=== PATIENT | male | born 1985 | race Caucasian/White ===

== ENCOUNTER → 2016-10-06 | Outpatient (CLI) | payer OTHER ==
[~2016-10-06] MED LIST: CEPH500C PO; CPR500 PO; METR-163 PO; ONDA4TAB46 PO; OXYC-57 PO
[2016-10-06 13:04] LABS: BASO % 0.7 %; BASO ABS # 0.06 K/uL (0-0.2); COMPLETE YES; EOS % 5.2 %; HEMATOCRIT 44.5 % (42-52); IG% 0.1 %; LYMPH % 24.6 %; LYMPH ABS # 2.19 K/uL (1.2-3.4); MEAN CELL VOLUME 91.6 fL (80-100); MEAN CORPUSCULAR HEMOGLOBIN 30.9 pg (25-34); MEAN CORPUSCULAR HGB CONC 33.7 g/dl (32-36); MEAN PLATELET VOLUME 10.3 fL (7.4-10.4); NEUT % 59.4 %; PLATELET COUNT 274 K/uL (130-400); RED BLOOD COUNT 4.86 M/uL (4.7-6.1); WHITE BLOOD COUNT 8.89 K/uL (4.8-10.8)
[2016-10-06 13:34] LABS: ALT/SGPT 49 U/L (12-78); AST/SGOT 20 U/L (15-37); BLOOD UREA NITROGEN 17 mg/dl (7-18); BUN/CREATININE RATIO 15.4 (10-20); CALCIUM 9.3 mg/dl (8.5-10.1); CARBON DIOXIDE 28 mmol/L (21-32); CHLORIDE 108 mmol/L (98-107); GLUCOSE 83 mg/dl (70-99); POTASSIUM 4.5 mmol/L (3.5-5.1); SODIUM 143 mmol/L (136-145)
[2016-10-06 13:36] LABS: ALB/GLOB RATIO 1.2 (0.9-2); ALKALINE PHOSPHATASE 76 U/L (45-117)
== END | disposition home or self-care (01) ==
LOC: C.LABPVFM 09:48
PROVIDERS: ATTEND Family Medicine
DX: R10.32 Left lower quadrant pain (principal)

== ENCOUNTER 2016-10-08 17:03 | Emergency (ER) | payer OTHER ==
[~2016-10-08] VITALS: Ht 177.8 cm; Wt 93.0 kg
[2016-10-08 17:10] VITALS: TEMP 36.8; Ht 177.8 cm; Wt 93.0 kg
--- NOTE | 2016-10-08 19:38 | EMERGENCY ROOM VISIT NOTE ---
History First contact with patient: 19:06 Chief Complaint: ABDOMINAL PAIN Stated Complaint: LOWER LF ABD PAIN Nursing Triage Summary: LLQ pain for a week seen by pcp on sat, xray done, told pt he needs a ct scan, pt states he cant wait for a week for the insurance company to verify the ct scan pt is in too much pain, it increases with movement, denies n/v/d History of Present Illness The patient is a 31 year old male who presents to the Emergency Room with complaints of left lower quadrant abdominal pain. The patient reports that he has had pain off and on for a few months. He states the pain has been constant for the past one week. He saw his primary care provider, who ordered an x-ray which was normal. They did want to order a CT scan, but this was not yet approved by insurance. He rates the discomfort a 3/10. It is slightly worse with movement. He denies any nausea or vomiting. He denies any changes in bowel movements. He denies any fevers/chills or urinary symptoms. The patient denies any history of abdominal surgeries. Review of Systems A complete 10-point Review of Systems was discussed with the patient, with pertinent positives and negatives listed in the History of Present Illness. All remaining Review of Systems questions can be considered negative unless otherwise specified. Social History Smoking Status: Never Smoker Current/Historical Medications No Active Prescriptions or Reported Meds Allergies Coded Allergies: No Known Allergies (Verified , 06/24/04) Physical Exam Vital Signs Date Time Temp Pulse Resp B/P Pulse Ox O2 Delivery O2 Flow Rate FiO2 10/08/16 21:06 80 127/72 98 10/08/16 19:19 81 16 137/85 Room Air 10/08/16 17:10 36.8 99 18 132/85 98 Room Air Physical Exam VITALS: Vitals are noted on the nurse's note and reviewed by myself. Vital signs stable. GENERAL: This is a 31-year-old male, in no acute distress, nondiaphoretic, well- developed well-nourished. SKIN: Capillary reflex less than 2 seconds. HEART: Regular rate and rhythm without murmurs gallops or rubs. LUNGS: Clear to auscultation bilaterally without wheezes, rales or rhonchi. ABDOMEN: Positive bowel sounds x 4. Soft with mild tenderness over the left lower quadrant. No guarding or rebound tenderness. NEURO: Patient was alert and oriented to person place and time. Medical Decision & Procedures ER Provider Diagnostic Interpretation: CT ABD/PELVIS IV CONTRAST ONLY IMPRESSION: 1. No evidence of bowel obstruction. No evidence of free air 2. Normal appendix 3. Infiltration of the fat surrounding the descending sigmoid colonic junction. The CT findings are highly suggestive of epiploic appendagitis. Laboratory Results 10/08/16 19:31 Red Blood Count 4.75, Mean Corpuscular Volume 90.9, Mean Corpuscular Hemoglobin 31.6, Mean Corpuscular Hemoglobin Concent 34.7, Mean Platelet Volume 9.7, Neutrophils (%) (Auto) 60.7, Lymphocytes (%) (Auto) 23.6, Monocytes (%) (Auto) 9.9, Eosinophils (%) (Auto) 5.1, Basophils (%) (Auto) 0.5, Neutrophils # (Auto) 6.56, Lymphocytes # (Auto) 2.55, Monocytes # (Auto) 1.07, Eosinophils # (Auto) 0.55, Basophils # (Auto) 0.05 10/08/16 19:31 Test 10/08/16 00:00 10/08/16 19:31 Urine Color YELLOW Urine Appearance CLEAR (CLEAR) Urine pH 5.5 (4.5-7.5) Urine Specific Dougherty 1.026 (1.000-1.030) Urine Protein NEG (NEG) Urine Glucose (UA) NEG (NEG) Urine Ketones NEG (NEG) Urine Occult Blood NEG (NEG) Urine Nitrite NEG (NEG) Urine Bilirubin NEG (NEG) Urine Urobilinogen NEG (NEG) Urine Leukocyte Esterase NEG (NEG) White Blood Count 10.80 K/uL (4.8-10.8) Red Blood Count 4.75 M/uL (4.7-6.1) Hemoglobin 15.0 g/dL (14.0-18.0) Hematocrit 43.2 % (42-52) Mean Corpuscular Volume 90.9 fL (80-100) Mean Corpuscular Hemoglobin 31.6 pg (25-34) Mean Corpuscular Hemoglobin Concent 34.7 g/dl (32-36) Platelet Count 274 K/uL (130-400) Mean Platelet Volume 9.7 fL (7.4-10.4) Neutrophils (%) (Auto) 60.7 % Lymphocytes (%) (Auto) 23.6 % Monocytes (%) (Auto) 9.9 % Eosinophils (%) (Auto) 5.1 % Basophils (%) (Auto) 0.5 % Neutrophils # (Auto) 6.56 K/uL (1.4-6.5) Lymphocytes # (Auto) 2.55 K/uL (1.2-3.4) Monocytes # (Auto) 1.07 K/uL (0.11-0.59) Eosinophils # (Auto) 0.55 K/uL (0-0.5) Basophils # (Auto) 0.05 K/uL (0-0.2) RDW Standard Deviation 40.7 fL (36.4-46.3) RDW Coefficient of Variation 12.3 % (11.5-14.5) Immature Granulocyte % (Auto) 0.2 % Immature Granulocyte # (Auto) 0.02 K/uL (0.00-0.02) Anion Gap 9.0 mmol/L (3-11) Est Creatinine Clear Calc Drug Dose 135.7 ml/min Estimated GFR () 129.8 Estimated GFR (Non- 112.0 BUN/Creatinine Ratio 17.7 (10-20) Calcium Level 8.9 mg/dl (8.5-10.1) Total Bilirubin 0.7 mg/dl (0.2-1) Aspartate Amino Transf (AST/SGOT) 29 U/L (15-37) Alanine Aminotransferase (ALT/SGPT) 52 U/L (12-78) Alkaline Phosphatase 78 U/L (45-117) Total Protein 7.7 gm/dl (6.4-8.2) Albumin 4.1 gm/dl (3.4-5.0) Globulin 3.6 gm/dl (2.5-4.0) Albumin/Globulin Ratio 1.1 (0.9-2) Medical Decision Differential diagnosis includes appendicitis, diverticulitis, gastroenteritis, colitis, among others. The patient was evaluated as above. Labs were drawn and IV access was obtained. Imaging studies were performed and read by radiology as above. The patient declined any analgesics. The patient was reassessed multiple times during their stay in the emergency department and remained in stable condition. The patient is a 31-year-old male who presents today complaining of left lower quadrant abdominal pain. Labs revealed no leukocytosis, anemia or concerning electrolyte abnormalities. Urinalysis was not suggestive of infection. CT scan of the abdomen and pelvis was performed and did show findings suggestive of epiploic appendagitis. The patient was informed that this is a self- limiting condition and that he should take anti-inflammatories at home. He will follow-up with his primary care provider as needed. Based on the patient's presentation, lab results, and imaging studies, I feel the patient is stable for outpatient treatment. The patient's case was reviewed with Dr. Fonseca, ED attending physician, who agreed with my assessment and treatment plan. Discharge instructions were reviewed with the patient. The patient verbalized understanding of my assessment and treatment plan and was discharged home in good condition. Impression Primary Impression: Epiploic appendagitis Departure Information Dispostion Home / Self-Care Condition GOOD Prescriptions No Active Prescriptions or Reported Meds Referrals Donald Hay M.D. (PCP) Patient Instructions My [facility] Additional Instructions You have been treated in the Emergency Department your Abdominal Pain. Laboratory results and imaging studies have ruled out any emergent causes for your abdominal pain which would warrant admission or surgery. Your CT scan showed epiploic appendagitis. This is a condition which will go away without treatment. Ibuprofen: 600 mg every 6 hours until your symptoms resolve. Drink plenty of water and stay well hydrated. As with any trip to the Emergency Department, you should follow-up with your Primary Care Provider from today's visit. Return to the emergency department if your symptoms persist despite treatment plan outlined above or if the following symptoms occur: increased fevers, chills , worsening nausea/vomiting, blood in your stool or urine.
[2016-10-08 19:46] LABS: URINE APPEARANCE CLEAR (CLEAR); URINE BILIRUBIN NEG (NEG); URINE COLOR YELLOW; URINE NITRITE NEG (NEG); URINE PH 5.5 (4.5-7.5); URINE SPECIFIC GRAVITY 1.026 (1.000-1.030); UROBILINOGEN NEG (NEG); ZZUR CULT IF INDIC CLEAN CATCH NO
[2016-10-08 19:49] LABS: BASO % 0.5 %; BASO ABS # 0.05 K/uL (0-0.2); COMPLETE YES; EOS % 5.1 %; HEMATOCRIT 43.2 % (42-52); IG% 0.2 %; LYMPH % 23.6 %; LYMPH ABS # 2.55 K/uL (1.2-3.4); MEAN CELL VOLUME 90.9 fL (80-100); MEAN CORPUSCULAR HEMOGLOBIN 31.6 pg (25-34); MEAN CORPUSCULAR HGB CONC 34.7 g/dl (32-36); MEAN PLATELET VOLUME 9.7 fL (7.4-10.4); MONO % 9.9 %; NEUT % 60.7 %; PLATELET COUNT 274 K/uL (130-400); RED BLOOD COUNT 4.75 M/uL (4.7-6.1)
[2016-10-08 19:50] LABS: MANUAL MICROSCOPIC REQUIRED? NO; REVIEW REQ? NO
[2016-10-08] MEDS ORDERED: OPTIRAY 320 IV PRN (20:00)
--- NOTE | 2016-10-08 20:00 | DIAGNOSTIC IMAGING REPORT ---
CT ABD/PELVIS IV CONTRAST ONLY CLINICAL HISTORY: Persistent left lower quadrant pain COMPARISON STUDY: Conventional radiographic study dated 10/08/2016 TECHNIQUE: Following the IV administration of 90 mL of Optiray-320, CT scan of the abdomen and pelvis was performed from the lung bases to the proximal femurs. Images are reviewed in the axial, sagittal, and coronal planes. IV contrast was administered without complication. CT DOSE: 556.86 mGy.cm FINDINGS: Lower chest: Bilateral dependent groundglass opacities left greater than right. These are likely atelectatic given the lack of reported pulmonary symptomatology. Liver: The contrast-enhanced liver is normal in size, contour, and attenuation. There is no intrahepatic biliary ductal dilatation. The hepatic veins and portal veins are patent. Gallbladder: Unremarkable. Spleen: Normal in size and attenuation. Pancreas: Unremarkable. Adrenal glands: Unremarkable. Kidneys: There is symmetric renal cortical enhancement. The kidneys are normal in size without hydronephrosis. Bowel: There are no transition zones indicate bowel obstruction. There is mild infiltration of the fat surrounding a small fatty lesion abutting the descending sigmoid junction. The findings are consistent with epiploic appendagitis the appendix appears normal.. Peritoneum: There is no intraperitoneal free air or abdominal ascites. There is a small fat-containing umbilical hernia. Vasculature: The abdominal aorta is normal in course and caliber. Adenopathy: None. Pelvic viscera: The bladder, and pelvic viscera are unremarkable. Skeletal structures: No destructive osseous lesions are seen. IMPRESSION: 1. No evidence of bowel obstruction. No evidence of free air 2. Normal appendix 3. Infiltration of the fat surrounding the descending sigmoid colonic junction. The CT findings are highly suggestive of epiploic appendagitis. Electronically signed by: Marito Falk M.D. 10/08/2016 7:59 PM Dictated Date/Time: 10/08/2016 7:53 PM
[2016-10-08 20:06] LABS: BUN/CREATININE RATIO 17.7 (10-20); CALCIUM 8.9 mg/dl (8.5-10.1); CREATININE 0.92 mg/dl (0.60-1.40)
[2016-10-08 20:09] LABS: ALB/GLOB RATIO 1.1 (0.9-2)
[2016-10-08 21:06] VITALS: BP 127/72; PULSE 80; O2SAT 98
== END 2016-10-08 21:00 | disposition home or self-care (01) ==
LOC: C.EDB 17:06
DX: K63.89 Other specified diseases of intestine (principal); Q43.8 Other specified congenital malformations of intestine

== ENCOUNTER → 2016-10-08 | Outpatient (CLI) | payer OTHER ==
--- NOTE | 2016-10-08 08:44 | DIAGNOSTIC IMAGING REPORT ---
PA CHEST WITH ABDOMINAL SERIES CLINICAL HISTORY: Left lower quadrant abdominal pain. Constipation and diarrhea. FINDINGS: A PA chest radiograph is obtained. No prior studies are available for comparison at the time of dictation. The cardiomediastinal silhouette is unremarkable. There is mild elevation of the left hemidiaphragm. The lungs and pleural spaces are clear. No pneumothorax is seen. The bony thorax is grossly intact. Supine and erect abdominal radiographs are obtained. No prior studies are available for comparison at the time of dictation. There is a nonobstructed abdominal bowel gas pattern. No evidence of intraperitoneal free air is seen. Mild colonic fecal retention is observed. There are no abnormal abdominal calcifications. The lumbosacral spine and bony pelvis appear intact. IMPRESSION: 1. No active disease in the chest. 2. Unremarkable abdominal radiographs. Electronically signed by: Matthew Alex M.D. 10/08/2016 8:43 AM Dictated Date/Time: 10/08/2016 8:41 AM
== END | disposition home or self-care (01) ==
LOC: C.RADPV 08:08
PROVIDERS: ATTEND Family Medicine
DX: R10.32 Left lower quadrant pain (principal)

== ENCOUNTER → 2017-10-08 | Outpatient (CLI) | payer OTHER ==
--- NOTE | 2017-10-08 10:01 | DIAGNOSTIC IMAGING REPORT ---
L-SPINE MIN 4 VIEWS ROUTINE CLINICAL HISTORY: SCIATICA COMPARISON: None FINDINGS: Alignment of lumbar spine is anatomic. Vertebral body heights are maintained. There is no fracture or suspicious lesion. There is minimal disc space narrowing at L5-S1. IMPRESSION: 1. No lumbar spine fracture or subluxation. 2. Minimal disc space narrowing at L5-S1. Electronically signed by: Manny Ware M.D. 10/08/2017 10:00 AM Dictated Date/Time: 10/08/2017 9:56 AM
--- NOTE | 2017-10-08 10:02 | DIAGNOSTIC IMAGING REPORT ---
SACRUM COCCYX MIN 2 VIEWS CLINICAL HISTORY: SCIATICA COMPARISON STUDY: No previous studies for comparison. FINDINGS: The sacroiliac joints are intact without evidence for ankylosis or erosions. No fracture or suspicious lesion is evident. No coccygeal abnormalities are identified. IMPRESSION: Unremarkable radiographs of the sacrum and coccyx. Electronically signed by: Manny Ware M.D. 10/08/2017 10:01 AM Dictated Date/Time: 10/08/2017 10:00 AM
== END | disposition home or self-care (01) ==
LOC: C.RADPV 09:30
PROVIDERS: ATTEND Family Medicine
DX: M54.30 Sciatica, unspecified side (principal)